=== PATIENT | female | born 1975 | race Caucasian/White ===

== ENCOUNTER 2019-11-02 01:14 | Emergency (ER) | payer BC, OTHER ==
[2019-11-02 01:26] VITALS: BP 149/77; PULSE 85
[2019-11-02] MEDS ORDERED: Famotidine 20 MG/2 ML SDV IVPUSH ONE (01:40)
[2019-11-02] MEDS ORDERED: predniSONE 20 MG Tab PO ONE (01:40)
[2019-11-02] MEDS ORDERED: diphenhydrAMINE 50 MG/ML SDV IVPUSH ONE ×2 (01:40→03:03)
--- NOTE | 2019-11-02 01:40 | EDM.PDOC ---
ED HPI GENERAL MEDICAL PROBLEM - General Chief Complaint: Allergic Reaction Stated Complaint: rash poss allergic reaction Time Seen by Provider: 11/02/19 01:30 - History of Present Illness INITIAL COMMENTS - FREE TEXT/NARRATIVE: 44-year-old female presents the emergency room with a rash. This started earlier today's progressively been getting worse and now she is noticing some swelling around her lips. Patient noticed a area on her right buttocks that she describes as a welt and then she is getting some lesions on her face and on the right side of her nose. These itch. She is not had any breathing difficulties or shortness of breath she feels like she might have a knot in her stomach but no abdominal pain or any other unusual symptoms. Patient has not had problems like this in the past. She has not started any new medications. Chest Pain Score (Numeric/FACES): 4 - Related Data Allergies Allergy/AdvReac Type Severity Reaction Status Date / Time amoxicillin Allergy Rash Verified 11/02/19 01:26 cefuroxime axetil Allergy Syncope Verified 11/02/19 01:26 [From Ceftin] sulfamethoxazole Allergy Rash Verified 11/02/19 01:26 [From Septra] trimethoprim [From Septra] Allergy Rash Verified 11/02/19 01:26 vancomycin Allergy Anaphylactic Verified 11/02/19 01:26 Shock Home Meds: Home Meds Cyclobenzaprine [Flexeril] 10 mg PO ASDIRECTED PRN 10/07/14 [History] Omeprazole [Prilosec] 20 mg PO DAILY 10/07/14 [History] metFORMIN [Glucophage] 750 mg PO BID 10/07/14 [History] FLUoxetine HCl [Fluoxetine HCl] 20 mg PO DAILY 11/02/19 [History] Famotidine [Acid Controller] 20 mg PO Q12H #14 tablet 11/02/19 [Rx] hydrOXYzine HCL [Atarax] 25 mg PO Q6H PRN #20 tab 11/02/19 [Rx] predniSONE 40 mg PO WITHBREAKFAST #8 tab 11/02/19 [Rx] Past Medical History HEENT History: Reports: Allergic Rhinitis, Sinusitis, Other (See Below) Other HEENT History: lasik surgery Cardiovascular History: Reports: High Cholesterol Respiratory History: Reports: Asthma Gastrointestinal History: Reports: Hiatal Hernia Other Gastrointestinal History: bleeding ulcer Genitourinary History: Reports: None [employer] History: Reports: Polycystic Ovaries Other [employer] History: c-sections x 2 Musculoskeletal History: Reports: Back Pain, Chronic Neurological History: Reports: Migraines, TIA Psychiatric History: Reports: Depression Endocrine/Metabolic History: Reports: None Hematologic History: Reports: Anemia Immunologic History: Reports: None Oncologic (Cancer) History: Reports: None Dermatologic History: Reports: Eczema - Infectious Disease History Infectious Disease History: Reports: MRSA Other Infectious Disease History: 2008 Pt had a abscess @ perianal area - Past Surgical History HEENT Surgical History: Reports: LASIK, Naso-Sinus Surgery Social & Family History - Family History HEENT: Reports: Allergic Rhinitis Cardiac: Reports: High Cholesterol, Hypertension, [place] ED ROS ALLERGIC REACTION - Review of Systems Review Of Systems: See Below Constitutional: Reports: No Symptoms. Denies: Fever, Chills HEENT: Reports: No Symptoms Respiratory: Reports: No Symptoms Cardiovascular: Reports: No Symptoms GI/Abdominal: Reports: No Symptoms, Other (Feeling of a knot in her stomach otherwise unremarkable) : Reports: No Symptoms Musculoskeletal: Reports: No Symptoms Skin: Reports: Rash. Denies: No Symptoms Neurological: Reports: No Symptoms Psychiatric: Reports: No Symptoms ED EXAM GENERAL NO PERIP PULSE - Physical Exam Exam: See Below Exam Limited By: No Limitations General Appearance: Alert, No Apparent Distress Ears: Normal External Exam, Normal Canal, Hearing Grossly Normal, Normal TMs Nose: Normal Inspection, Normal Mucosa, No Blood Throat/Mouth: Normal Inspection, Normal Lips, Normal Teeth, Normal Gums, Normal Oropharynx, Normal Voice, No Airway Compromise Head: Atraumatic, Normocephalic Neck: Normal Inspection, Supple, Non-Tender, Full Range of Motion. No: Lymphadenopathy (L), Lymphadenopathy (R) Respiratory/Chest: No Respiratory Distress, Lungs Clear, Normal Breath Sounds Cardiovascular: Regular Rate, Rhythm, No Edema, No Murmur GI/Abdominal: Normal Bowel Sounds, Soft, Non-Tender Psychiatric: Other Skin Exam: Other (Right buttocks she is got a 2 to 3 cm annular raised lesion that is clear in the center nonscaly. She is got multiple other lesions in various locations that might be consistent with hives.) Course - Vital Signs Last Recorded V/S: Last Vital Signs Temp 36.2 C 11/02/19 01:20 Pulse 85 11/02/19 01:20 Resp 20 11/02/19 01:20 BP 149/77 H 11/02/19 01:20 Pulse Ox - Orders/Labs/Meds Meds: Medications Discontinued Medications Generic Name Dose Route Start Last Admin Trade Name Freq PRN Reason Stop Dose Admin Diphenhydramine HCl 25 mg 11/02/19 01:40 11/02/19 01:50 Benadryl IVPUSH 11/02/19 01:41 25 mg ONETIME ONE Administration Diphenhydramine HCl 25 mg 11/02/19 03:03 11/02/19 03:09 Benadryl IVPUSH 11/02/19 03:04 25 mg ONETIME ONE Administration Famotidine 40 mg 11/02/19 01:40 11/02/19 01:52 Pepcid IVPUSH 11/02/19 01:41 40 mg ONETIME ONE Administration Hydroxyzine HCl 25 mg 11/02/19 04:12 11/02/19 04:18 Atarax PO 11/02/19 04:13 25 mg ONETIME ONE Administration Prednisone 60 mg 11/02/19 01:40 11/02/19 01:52 Prednisone PO 11/02/19 01:41 60 mg ONETIME ONE Administration - Re-Assessments/Exams Free Text/Narrative Re-Assessment/Exam: 11/02/19 04:59 Patient got minimal improvement oral prednisone IV Benadryl and Pepcid. Her itching improved some with hydroxyzine. She was observed for some time and is clearly not getting any worse subtle improvement. I have told the patient no uncertain terms that she may have to seek a dermatology evaluation to get this sorted out. In the meantime we will discharge her on prednisone famotidine and hydroxyzine Departure - Departure Time of Disposition: 05:00 Disposition: Home, Self-Care 01 Clinical Impression: Dermatitis due to unknown cause - Discharge Information Prescriptions: Famotidine [Acid Controller] 20 mg PO Q12H #14 tablet hydrOXYzine HCL [Atarax] 25 mg PO Q6H PRN #20 tab PRN Reason: Itching predniSONE 40 mg PO WITHBREAKFAST #8 tab Referrals: Emma Tong, [employer] [Primary Care Provider] - Forms: ED Department Discharge Additional Instructions: Return to the emergency room with any questions problems or worsening symptoms. Follow-up with your regular provider early next week. You may need to see a light bulb tester if your symptoms do not resolve. Take the medications as directed. Sepsis Event Note - Evaluation Sepsis Screening Result: No Definite Risk - Focused Exam Vital Signs: Vital Signs Temp Pulse Resp BP 11/02/19 01:20 36.2 C 85 20 149/77 H Date Exam was Performed: 11/02/19 Time Exam was Performed: 04:59
[2019-11-02] MEDS ORDERED: hydrOXYzine HCl 25 MG Tab PO ONE (04:12)
== END 2019-11-02 05:16 | disposition home or self-care (01) ==
LOC: JD.ED 01:14
DX: L30.9 Dermatitis, unspecified (principal); J45.909 Unspecified asthma, uncomplicated; F32.9 Major depressive disorder, single episode, unspecified; Z88.0 Allergy status to penicillin; Z88.2 Allergy status to sulfonamides; Z88.1 Allergy status to other antibiotic agents; Z86.73 Personal history of transient ischemic attack (TIA), and cerebral infarction without residual deficits; Z79.899 Other long term (current) drug therapy
CPT/HCPCS: 96374; 96375; 96376; 99282; A9270; J1200; J3490; 99283

== ENCOUNTER 2022-06-30 18:12 | Emergency (ER) | payer BC ==
[2022-06-30 18:21] VITALS: BP 136/64; PULSE 76
[2022-06-30] MEDS ORDERED: HYDROmorphone 0.5 MG/0.5 ML Syringe IVPUSH ONE (19:45)
== END 2022-06-30 20:38 | disposition home or self-care (01) ==
LOC: JD.ED 18:12
DX: S06.0X0A Concussion without loss of consciousness, initial encounter (principal); S93.402A Sprain of unspecified ligament of left ankle, initial encounter; Z88.0 Allergy status to penicillin; Z88.1 Allergy status to other antibiotic agents; Z88.2 Allergy status to sulfonamides; Z79.899 Other long term (current) drug therapy; Z79.84 Long term (current) use of oral hypoglycemic drugs; X50.1XXA Overexertion from prolonged static or awkward postures, initial encounter
CPT/HCPCS: 70450; 72125; 73610; 96374; 99284; A9270; J1170